=== PATIENT | male | born 2000 | race Caucasian/White ===

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

== ENCOUNTER 2020-12-14 09:07 | Emergency (ER) | payer OTHER ==
[2020-12-14 09:12] VITALS: BP 169/94; PULSE 110; RESP 18; TEMP 98.4
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
[2020-12-14] MEDS ORDERED: SODIUM CHLORIDE 0.9% 1,000 ML IV ONE (09:23)
[2020-12-14 09:27] LABS: Glucose,Whole Blood 119 mg/dL (75-99)
[2020-12-14 09:34] LABS: Basophils % (A) 0 %; Eosinophils % (A) 0 %; HCT 49.9 % (39.0-53.0); HGB 18.5 gm/dL (13.0-17.5); Lymphocytes # (A) 1.2 k/uL (1.0-4.8); Lymphocytes % (A) 11 %; MCH 32.2 pg (25.0-35.0); MCHC 37.1 g/dL (31.0-37.0); MCV 86.8 fL (80.0-100.0); Monocytes # (A) 0.6 k/uL (0-1.0); Monocytes % (A) 5 %; Neutrophils # (A) 9.3 k/uL (1.3-7.7); Neutrophils % (A) 83 %; Platelet Count 283 k/uL (150-450); RBC 5.75 m/uL (4.30-5.90); RDW 12.8 % (11.5-15.5); WBC 11.2 k/uL (3.8-10.6)
[2020-12-14 09:36] LABS: Appearance,Urine Clear (Clear); Bilirubin,Urine Negative (Negative); Blood,Urine Negative (Negative); Color,Urine Colorless; Glucose,Urine (UA) Negative (Negative); Ketones,Urine Negative (Negative); Leukocyte Esterase,Urine Negative (Negative); Nitrite,Urine Negative (Negative); PH, Urine 6.5 (5.0-8.0); Protein,Urine Negative (Negative); Specific Gravity,Urine 1.005 (1.001-1.035); Urobilinogen,Urine <2.0 mg/dL (<2.0)
[2020-12-14 09:44] LABS: ALT 25 U/L (4-49); AST 33 U/L (17-59); African American GFR (CKD) >90 (>60 ml/min/1.73 sqM); Albumin 5.6 g/dL (3.5-5.0); Alcohol 64 mg/dL; Alkaline Phosphatase 74 U/L (38-126); Anion Gap 16 mmol/L; Blood Urea Nitrogen 8 mg/dL (9-20); Calcium 10.4 mg/dL (8.4-10.2); Carbon Dioxide 21 mmol/L (22-30); Chloride 106 mmol/L (98-107); Creatine Kinase 138 U/L (55-170); Glucose 99 mg/dL (74-99); Non-African American GFR(CKD) >90 (>60 ml/min/1.73 sqM); Potassium 3.9 mmol/L (3.5-5.1); Sodium 143 mmol/L (137-145); Total Bilirubin 0.5 mg/dL (0.2-1.3); Total Protein 8.3 g/dL (6.3-8.2)
[2020-12-14 09:45] LABS: Amphetamine Screen,Urine Not Detected (NotDetected); Barbiturate Screen,Urine Not Detected (NotDetected); Benzodiazepines Screen,Urine Not Detected (NotDetected); Cocaine Screen,Urine Not Detected (NotDetected); Methadone Screen, Urine Not Detected (NotDetected); Opiate Screen,Urine Not Detected (NotDetected); Oxycodone Screen, Urine Not Detected (NotDetected); Phencyclidine Screen,Urine Not Detected (NotDetected); Tricyclic Antidepressant,Urine Not Detected (NotDetected); Urn Cannabinoid Scrn Not Detected (NotDetected)
[2020-12-14 09:48] LABS: Partial Thromboplastin Time 22.1 sec (22.0-30.0); Prothrombin Time 10.6 sec (9.0-12.0)
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
== END 2020-12-14 10:20 | disposition home or self-care (01) ==
LOC: EC 09:07
DX: S06.0X1A Concussion with loss of consciousness of 30 minutes or less, initial encounter (principal); S20.211A Contusion of right front wall of thorax, initial encounter; F17.290 Nicotine dependence, other tobacco product, uncomplicated; Z79.1 Long term (current) use of non-steroidal anti-inflammatories (NSAID); V43.92XA Unspecified car occupant injured in collision with other type car in traffic accident, initial encounter; Y92.410 Unspecified street and highway as the place of occurrence of the external cause
CPT/HCPCS: 36415; 93005; 86900; 86901; 80053; 82550; 83605; 84484; 85025; 85610; 85730; 86850; 81003; 80306; 80320; 72170; 71045; 72125; 70450; 71260; 74177; 96360; 99284; L0120; Q9967

== ENCOUNTER 2022-01-26 14:53 | Emergency (ER) | payer OTHER ==
[2022-01-26 15:01] VITALS: TEMP 98
[2022-01-26] MEDS ORDERED: LIDOCAINE 1% INJ 10MG/ML (20 ML MDV) SQ ONE (15:10)
[2022-01-26] MEDS ORDERED: HYDROcodone/APAP 5-325MG 1 EACH TAB PO STA (15:10)
[2022-01-26] MEDS ORDERED: DIPH,PERTUS(ACELL)TETVAC-LF 0.5 ML VIAL IM ONE (15:10)
[2022-01-26] MEDS ORDERED: CEPHALEXIN 500 MG CAP PO STA (15:17)
--- NOTE | 2022-01-26 15:17 | ED ---
Wound/Laceration HPI - General Chief Complaint: Wound/Laceration Stated Complaint: [facility],Cut finger off x2 Time Seen by Provider: 01/26/22 15:05 Source: patient, RN notes reviewed Mode of arrival: wheelchair - History of Present Illness Initial Comments: This is a 21-year-old male who presents to the emergency department for a laceration to fingers 3 and 4 on the right hand. 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 He ended up slicing his fingers in the process. States that they feel numb. Unsure when his last tetanus vaccine was. States that this was a very dirty object. Denies any fevers, chills, sore throat, cough, dyspnea, chest pain, palpitations, abdominal pain, nausea, vomiting, diarrhea, back pain, or headaches. Extremity Location: Right: Hand (fingers 3 and 4) Place: work Patient Tetanus UTD: No Context: accidental Associated Symptoms: loss of feeling/numbness - Related Data Previous Rx's Medication Instructions Recorded HYDROcodone/APAP 5-325MG [[facility] 1 tab PO Q6HR PRN #8 tab 08/16/15 5-325] Ibuprofen [Motrin] 800 mg PO Q8HR PRN #21 tab 08/16/15 Ibuprofen [Motrin] 600 mg PO Q6HR PRN #40 day 04/07/18 Cephalexin [Keflex] 1,000 mg PO Q12HR 5 Days #20 cap 01/26/22 Allergies Allergy/AdvReac Type Severity Reaction Status Date / Time No Known Allergies Allergy Verified 01/26/22 15:00 Review of Systems ROS Statement: Those systems with pertinent positive or pertinent negative responses have been documented in the HPI. ROS Other: All systems not noted in ROS Statement are negative. Past Medical History Past Medical History: No Reported History History of Any Multi-Drug Resistant Organisms: None Reported Past Surgical History: No Surgical Hx Reported Past Psychological History: No Psychological Hx Reported Smoking Status: Vaper Past Alcohol Use History: Occasional Past Drug Use History: None Reported General Exam Limitations: no limitations General appearance: alert, in no apparent distress Head exam: Present: atraumatic, normocephalic, normal inspection Respiratory exam: Present: normal lung sounds bilaterally. Absent: respiratory distress, wheezes, rales, rhonchi, stridor Cardiovascular Exam: Present: regular rate, normal rhythm, normal heart sounds. Absent: systolic murmur, diastolic murmur, rubs, gallop, clicks Neurological exam: Present: alert, oriented X3, CN II-XII intact Psychiatric exam: Present: normal affect, normal mood Skin exam: Present: other (4 cm horizontal flap lacerations to the finger pads of fingers 3 and 4 on the right hand. Active bleeding and visible subcutaneous tissue.) Course Vital Signs 01/26/22 01/26/22 14:55 17:01 Temperature 98.0 F 98.0 F Pulse Rate 102 H 88 Respiratory 16 18 Rate Blood Pressure 152/82 132/77 O2 Sat by Pulse 98 98 Oximetry Procedures - Laceration Laceration #1 Consent Obtained: verbal consent Indication: laceration Site: other (finger #3 right hand) Size (cm): 4 Description: flap Depth: simple, single layer Anesthetic Used: lidocaine 1% Anesthesia Technique: local infiltration Amount (mls): 3 Pre-repair: wound explored Type of Sutures: nylon Size of Sutures: 5-0 Number of Sutures: 6 Technique: simple, interrupted Laceration #2 Consent Obtained: verbal consent Indication: laceration Site: other (finger #4 on the right hand) Size (cm): 4 Description: flap Depth: simple, single layer Anesthetic Used: lidocaine 1% Anesthesia Technique: local infiltration Amount (mls): 3 Pre-repair: wound explored, irrigated extensively Type of Sutures: nylon Size of Sutures: 5-0 Number of Sutures: 7 Technique: simple, interrupted Medical Decision Making - Medical Decision Making This is a 21-year-old male who presents to the emergency department for lacerations to fingers 3 and 4 on the right hand. Patient's tetanus status was updated. X-rays of the fingers were obtained, revealing no signs of a fracture or dislocation. Both fingers were sutured. Advised ibuprofen and Tylenol as needed for pain relief. He is instructed to return in 7-10 days for suture removal. Rx for Keflex provided to be taken for 5 days due to the dirtiness and depth of the wounds. Return precautions reviewed in depth, the patient is instructed to return to the emergency department with any new, worsening, or concerning symptoms. Patient verbalized understanding. This case was discussed in detail with the attending ED physician. Presentation, findings, and treatment plan discussed in detail as well. - Radiology Data Radiology results: report reviewed, image reviewed Disposition Clinical Impression: Laceration of multiple sites of right hand and fingers Disposition: HOME SELF-CARE Instructions (If sedation given, give patient instructions): Care For Your Stitches (ED) Additional Instructions: Return to the emergency department with any new, worsening, or concerning symptoms and in 7-10 days for removal of your stitches. Take the antibiotic as prescribed for 5 days. Alternate with ibuprofen and Tylenol as needed for pain relief. Prescriptions: Cephalexin [Keflex] 1,000 mg PO Q12HR 5 Days #20 cap Is patient prescribed a controlled substance at d/c from ED?: No Referrals: Patrick Tamez MD [REFERRING] - 1-2 days
--- NOTE | 2022-01-26 15:38 | XR ---
EXAMINATION TYPE: XR hand complete RT DATE OF EXAM: 01/26/2022 COMPARISON: 04/07/2018 HISTORY: 22-year-old male pain and laceration after injury to the third and fourth fingers. TECHNIQUE: 3 views FINDINGS: There is some soft tissue injury to the distal aspects of the third and fourth fingers abelino cially at the level of the DIP joints. No retained radiopaque foreign body seen. No acute fracture, s ubluxation, or dislocation. IMPRESSION: Soft tissue injury to the distal aspects of the third and fourth digits. No underlying acute osseous abnormality seen.
[2022-01-26] MEDS ORDERED: ACET/COD 300 MG/30 MG STARTER PACK 6 TAB BTL PO STA (16:48)
[2022-01-26 17:21] VITALS: BP 132/77; PULSE 88; RESP 18
== END 2022-01-26 17:20 | disposition home or self-care (01) ==
LOC: EC 14:53
DX: S61.213A Laceration without foreign body of left middle finger without damage to nail, initial encounter (principal); S61.215A Laceration without foreign body of left ring finger without damage to nail, initial encounter; Z23 Encounter for immunization; F17.290 Nicotine dependence, other tobacco product, uncomplicated; W26.8XXA Contact with other sharp object(s), not elsewhere classified, initial encounter
CPT/HCPCS: 73130; 90715; 99284; 90471; 12004; J2001